=== PATIENT | female | born 1970 | race Caucasian/White ===

== ENCOUNTER → 2016-12-25 | Outpatient (CLI) | payer BC ==
[~2016-12-25] MED LIST: ACET325T96 PO; ASCO1CHW13 PO; FLUO40CA8 PO; MULT-506 PO
== END | disposition home or self-care (01) ==
LOC: C.PAPS 09:50
PROVIDERS: ATTEND Obstetrics & Gynecology
DX: Z01.419 Encounter for gynecological examination (general) (routine) without abnormal findings (principal)

== ENCOUNTER → 2016-12-25 | Outpatient (CLI) | payer BC ==
--- NOTE | 2016-12-25 16:34 | MAMMOGRAPHY REPORT ---
BILATERAL DIGITAL DIAGNOSTIC MAMMOGRAM TOMOSYNTHESIS WITH CAD AND TARGETED RIGHT ULTRASOUND: 12/25/19 17 CLINICAL HISTORY: The patient is status post bilateral reduction mammoplasty in 2014. She reports t hat her doctor felt a palpable lump in the right breast during a routine clinical exam. TECHNIQUE: Breast tomosynthesis in addition to standard 2D mammography was performed. Current study was also evaluated with a Computer Aided Detection (CAD) system. Bilateral CC and MLO 2-D and elisha synthesis images were obtained. The patient was initially seen as a screening mammogram and returne d the same day after her physician felt a palpable lump, and she was converted to a diagnostic lupe p. COMPARISON: Comparison is made to exams dated: 05/08/2014 mammogram, 10/21/2013 mammogram, 3 mammogram, and 10/21/2013 ultrasound - [facility]. BREAST COMPOSITION: The tissue of both breasts is heterogeneously dense, which may obscure small ma sses. FINDINGS: There are new post surgical changes from bilateral reduction mammoplasty. There are mult iple round fat density masses within bilateral upper outer quadrants, consistent with benign fat nec rosis/oil cysts. Some of the fat density masses in the right upper outer quadrant have associated c oarse benign calcifications consistent with dystrophic calcifications. There is an oval circumscrib ed benign-appearing 13 mm mass seen within the left inferior breast which is stable compared to the 2013 exam. No suspicious masses, calcifications, or areas of architectural distortion are noted in either breast. Targeted ultrasound was performed of the area of the palpable lump pointed out by the patient, in th e right breast at approximately 11:00, 2 cm from the nipple. At the site of the palpable lump there is a round isoechoic mass which measures 2.2 x 1.8 x 2.2 cm. An adjacent similar mass is noted ant eriorly which measures 1.4 x 1.2. A BB was placed at the site of the palpable lump and repeat right CC and MLO views were obtained. The BB is located at the site of a group of adjacent fat density m asses, which in conglomerate measure up to 5.1 cm on the MLO view. These masses correspond with the isoechoic masses seen on ultrasound and correspond with the palpable lump. IMPRESSION: ACR BI-RADS CATEGORY 2: BENIGN, TARGETED ULTRASOUND ACR BI-RADS CATEGORY 2: BENIGN The palpable lump in the right upper outer quadrant corresponds with multiple adjacent fat density m asses consistent with benign oil cysts/fat necrosis, likely related to reduction mammoplasty. There is no mammographic or targeted sonographic evidence of malignancy. Recommend clinical follow-up fo r the right breast palpable lump, and recommend routine bilateral screening mammograms in one year. The patient has been verbally notified of the results. Approximately 10% of breast cancers are not detected with mammography. A negative mammographic repor t should not delay biopsy if a clinically suggestive mass is present. Terese Jerez M.D. ah/:12/25/2016 14:30:32 [employer] Machine Operator: Pilar SMITH(R)(M), [facility] letter sent: Normal 1/2 BI-RADS Code: ACR BI-RADS Category 2: Benign Ultrasound BI-RADS: ACR BI-RADS Category 2: Benign
== END | disposition home or self-care (01) ==
LOC: C.MAMM 12:38
PROVIDERS: ATTEND Family Medicine
DX: N60.01 Solitary cyst of right breast (principal)